=== PATIENT | female | born 1980 | race Caucasian/White ===

== ENCOUNTER 2025-03-09 03:25 | Inpatient (IN) | payer OTHER, SELFPAY ==
[2025-03-08 17:29] VITALS: BP 141/93
[2025-03-08 17:48] LABS: Hematocrit 47.1 % (37.0-47.0); Hemoglobin 16.2 g/dL (12.0-16.0); Mean Corp Hgb Conc. 34.4 g/dL (33.0-37.0); Mean Corpuscular Volume 84.9 fL (81.0-99.0); Nucleated Red Blood Cells % 0 %; Platelet Count 503 10^3/uL (130-400); Red Cell Dist. Width 12.7 % (11.5-14.5)
[2025-03-08 18:01] LABS: HCG, Serum Qualitative Screen Negative
[2025-03-08 18:14] LABS: ALT (SGPT) 23 U/L (0-35); AST (SGOT) 24 U/L (14-36); Albumin 4.1 g/dl (3.5-5.0); Alkaline Phosphatase 71 U/L (38-126); Blood Urea Nitrogen 23 mg/dl (7-17); Calcium 9.4 mg/dl (8.4-10.2); Carbon Dioxide 24 mmol/L (22-30); Glucose 110 mg/dl (70-99); Lipase 35 U/L (23-300); Total Protein 7.3 g/dl (6.3-8.2); eGFR > 60.00
[2025-03-08 18:22] LABS: Chloride 106 mmol/L (98-107); Potassium 5.0 mmol/L (3.5-5.1); Sodium 136 mmol/L (135-145)
--- NOTE | 2025-03-08 20:16 | ED.GENMED ---
History of Present Illness
<Rula Kaur NP - Last Filed: 03/09/25 00:43>
General
Chief Complaint: Abdominal Pain
Source: patient
Exam Limitations: none
Time Seen by Provider: 03/08/25 20:07
Nursing documentation reviewed up to this point in time: agreed with
History of Present Illness
History of Present Illness:
Patient to ED wtih complaint of abdominal pain, n/v. Symptoms started this AM. Denies fever chills, no diarrhea. Brought to ED by family for eval. No prior history of same.
Past History
<Rula Kaur NP - Last Filed: 03/09/25 00:43>
Past History
ED Past Medical History: HTN
Review of Systems
<Rula Kaur NP - Last Filed: 03/09/25 00:43>
Review of Systems
Allergies reviewed?: Yes
All Other Systems: ROS reviewed and negative except as documented in HPI and ROS
Constitutional: Reports no symptoms
EENT: Reports no symptoms
Respiratory: Reports no symptoms
Cardiac: Reports no symptoms
ABD/GI: Reports abdominal pain, nausea and vomiting
: Reports no symptoms
Musculoskeletal: Reports no symptoms
Skin: Reports no symptoms
Neurological: Reports no symptoms
Psychiatric: Reports no symptoms
Phy Exam
<Rula Kaur [employer] - Last Filed: 03/09/25 00:43>
General Physical Exam
General Presentation: moderate distress
General age: appears stated age
General Skin: warm and dry
General Habitus: normal
General Mental: alert
Cardiovascular Exam
Cardiovascular Exam: regular rate/rhythm
Gastrointestinal Exam
Gastrointestinal Exam: normal bowel sounds, soft, no organomegaly, no pulsatile mass and non distended
Palpation: generalized: Moderate tenderness
Musculoskeletal Exam
Musculoskeletal Exam: full ROM and neuro vasc intact
Skin Exam
Skin Exam: normal color, warm/dry and no rash
Psychiatric Exam
Psychiatric Exam: normal mood/affect
Course
<Rula Kaur NP - Last Filed: 03/09/25 00:43>
Orders/Labs/Results
Orders:
Orders
03/08/25 17:34
Test Result ONCE
03/08/25 17:38
Complete Blood Count/With Diff Urgent
Comprehensive Metabolic Panel Urgent
HCG, Serum Qualitative Screen Urgent
Comment: Notify provider if positive test present
Lipase Urgent
03/08/25 20:14
0.9% Sodium Chloride 1000 ml [Nss] 1,000 ml IV BOLUS
HYDROmorphone [Dilaudid] 0.5 mg IV NOW STA
Ondansetron Injectable [Zofran] 4 mg IV NOW STA
03/08/25 20:15
CT Abd/pelvis W Iv Cont Urgent
Comment:
Reason For Exam: diffuse pain, n/v
Urinalysis Reflex To Culture Urgent
03/08/25 20:33
Lactic Acid Urgent
03/08/25 23:23
HYDROmorphone [Dilaudid] 0.5 mg IV NOW STA
03/08/25 23:24
HYDROmorphone [Dilaudid] 0.5 mg .ROUTE .STK-MED ONE
03/08/25 23:32
Ondansetron Injectable [Zofran] 4 mg .ROUTE .STK-MED ONE
03/08/25 23:33
Ondansetron Injectable [Zofran] 4 mg IV NOW STA
03/09/25 00:38
LevoFLOXacin 750 MG/150 ML [Levaquin] 750 mg in 150 ml IV NOW
MetroNIDAZOLE 500 MG/100 ML [Flagyl 500 mg] 100 ml IV NOW
03/09/25 23:50
CR Chest - 2 Views Urgent
Reason For Exam: opacities seen on abd. CT
Abnormal Lab Results
03/08/25
17:38
WBC 17.0 H 10^3/uL
(4.8-10.8)
RBC 5.55 H 10^6/uL
(4.20-5.40)
Hgb 16.2 H g/dL
(12.0-16.0)
Hct 47.1 H %
(37.0-47.0)
Plt Count 503 H 10^3/uL
(130-400)
Abs Immat Gran (auto) 0.2 H 10^3/uL
(0-0.05)
Absolute Neuts (auto) 15.2 H 10^3/uL
(1.4-6.5)
Immature Gran % 0.9 H %
(0-0.5)
Neutrophils % 89.0 H %
(42.2-75.2)
Lymphocytes % 7.7 L %
(20.5-51.1)
BUN 23 H mg/dl
(7-17)
Glucose 110 H mg/dl
(70-99)
03/08/25 17:38
03/08/25 17:38
Vital Signs
Initial and Last Documented VS:
Initial Vital Signs
Temp Pulse Resp BP Pulse Ox
99.1 F 76 16 141/93 100
03/08/25 17:29 03/08/25 17:29 03/08/25 17:29 03/08/25 17:29 03/08/25 17:29
Last Documented Vital Signs
Temp Pulse Resp BP Pulse Ox
98 F 89 20 120/82 98
03/08/25 23:39 03/08/25 23:39 03/08/25 23:39 03/08/25 23:39 03/08/25 23:39
<Josette Dimas MD - Last Filed: 03/09/25 00:43>
Orders/Labs/Results
Orders:
Orders
03/08/25 17:34
Test Result ONCE
03/08/25 17:38
Complete Blood Count/With Diff Urgent
Comprehensive Metabolic Panel Urgent
HCG, Serum Qualitative Screen Urgent
Comment: Notify provider if positive test present
Lipase Urgent
03/08/25 20:14
0.9% Sodium Chloride 1000 ml [Nss] 1,000 ml IV BOLUS
HYDROmorphone [Dilaudid] 0.5 mg IV NOW STA
Ondansetron Injectable [Zofran] 4 mg IV NOW STA
03/08/25 20:15
CT Abd/pelvis W Iv Cont Urgent
Comment:
Reason For Exam: diffuse pain, n/v
Urinalysis Reflex To Culture Urgent
03/08/25 20:33
Lactic Acid Urgent
03/08/25 23:23
HYDROmorphone [Dilaudid] 0.5 mg IV NOW STA
03/08/25 23:24
HYDROmorphone [Dilaudid] 0.5 mg .ROUTE .STK-MED ONE
03/08/25 23:32
Ondansetron Injectable [Zofran] 4 mg .ROUTE .STK-MED ONE
03/08/25 23:33
Ondansetron Injectable [Zofran] 4 mg IV NOW STA
03/09/25 00:38
LevoFLOXacin 750 MG/150 ML [Levaquin] 750 mg in 150 ml IV NOW
MetroNIDAZOLE 500 MG/100 ML [Flagyl 500 mg] 100 ml IV NOW
03/09/25 23:50
CR Chest - 2 Views Urgent
Reason For Exam: opacities seen on abd. CT
Abnormal Lab Results
03/08/25
17:38
WBC 17.0 H 10^3/uL
(4.8-10.8)
RBC 5.55 H 10^6/uL
(4.20-5.40)
Hgb 16.2 H g/dL
(12.0-16.0)
Hct 47.1 H %
(37.0-47.0)
Plt Count 503 H 10^3/uL
(130-400)
Abs Immat Gran (auto) 0.2 H 10^3/uL
(0-0.05)
Absolute Neuts (auto) 15.2 H 10^3/uL
(1.4-6.5)
Immature Gran % 0.9 H %
(0-0.5)
Neutrophils % 89.0 H %
(42.2-75.2)
Lymphocytes % 7.7 L %
(20.5-51.1)
BUN 23 H mg/dl
(7-17)
Glucose 110 H mg/dl
(70-99)
03/08/25 17:38
03/08/25 17:38
Vital Signs
Initial and Last Documented VS:
Initial Vital Signs
Temp Pulse Resp BP Pulse Ox
99.1 F 76 16 141/93 100
03/08/25 17:29 03/08/25 17:29 03/08/25 17:29 03/08/25 17:29 03/08/25 17:29
Last Documented Vital Signs
Temp Pulse Resp BP Pulse Ox
98 F 89 20 120/82 98
03/08/25 23:39 03/08/25 23:39 03/08/25 23:39 03/08/25 23:39 03/08/25 23:39
<Rula Kaur [employer] - Last Filed: 03/09/25 00:43>
*Radiology
Radiology exam reviewed: radiology read reviewed
*Pulse Oximetry
SaO2: 100
Oxygen Mode of Delivery: Room air
Patient hypoxic: no
*Critical Care Note
Total Time (30-74mins, 75-104mins- exclusive of procedures): Not Applicable
<Rula Kaur NP - Last Filed: 03/09/25 00:43>
Update Note
Update Note:
Patient to ED with complaint of diffuse abdominal pain, n/v. Symptoms started this AM. Denies fever/chills. Afebrile in ED. Labs reviewed. WBC 17. Abd CT report reviewed. Moderated thickening/edema within muliple loops of the mid to distal
small bowel. Large amt of ascites. Possible etiologies include infection, inflammation, ischemia, vasculitis Angioedema is also a possiblecause, patient is has been taking Benazepril for the past year. Biilateral lobe opacities noted on CT also.
CXR reviewed, NAD noted. LCTA, pulse ox 99% RA. Discussed case with Dr. Dimas, CT reviewed with her. Will admit to hospitalist. Levaquin/flagyl started in ED.
ED Attending Note
<Rula Kaur NP - Last Filed: 03/09/25 00:43>
-
Portions of this chart may have been created with voice recognition software.� Occasional wrong word or��sound alike� substitutions may have occurred due to the inherent limitations of voice recognition software.
<Josette Dimas MD - Last Filed: 03/09/25 00:43>
ED Attending Note
Patient seen and examined by attending physician: Yes
I performed the substantive portion of visit, reviewed & personally made and approve the management plan that is documented in note by myself or WES.: Yes
ED Attending Note:
44-year-old female notes abdominal pain that developed early this morning, not sudden in onset, but persistent, waxes and wanes in intensity in 'waves' associated with nausea and vomiting but no diarrhea. No fever, chills. Pain is diffuse without
exacerbating relieving factors. On exam, now status post pain medication has minimal tenderness to palpation, no rebound or guarding. Overall well-appearing, requesting something to drink. Labs CT reviewed, differential is broad. She does not
have a 'surgical' exam given absence of rebound or guarding or toxicity. TERRY inhibitor induced angioedema is a possibility and patient was advised to discontinue TERRY inhibitor's going forward or until advised otherwise. She will be admitted,
hydration, pain management, observation, may need repeat imaging.
Discharge Plan
Departure
Patient Disposition: Admit
Date of Disposition: 03/09/25
Time of Disposition: 00:42
Presentation/result/management discussed w/ accepting MD/DO: Hospitalist
Patient with high blood pressure during this ER visit?: No
Condition: Good
Covid-19: Not Applicable
Discharge Problem:
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
Prescriptions:
No Action
benazepril-hydrochlorothiazide 10-12.5 mg Tablet
1 tab PO DAILY
Loestrin 24 Fe 1 mg-20 mcg (24)/75 mg (4) Tablet
1 tab PO DAILY
Referrals:
Denis Weiss MD [Family Provider, Internal Medicine]
Interventions
Interventions:
*Risk Screen - Suicide Last Done: 03/08/25 17:29
*General Assessment Last Done: 03/08/25 20:41
*Neglect/Abuse Screening Last Done: 03/08/25 17:29
*ED- Fall Risk Assessment Last Done: 03/08/25 20:41
*ED COVID-19 Vaccine History Last Done: 03/08/25 20:41
DA-Ebttpv-Crkekxfxwg Assessment Last Done: 03/08/25 23:46
Discharge Date and Time
Print Language: NICARAGUAN
[2025-03-08] MEDS: ZOFRAN 4 MG IV ×2 (20:28→23:34)
[2025-03-08] MEDS: NSS 1000 IV (20:28)
[2025-03-08] MEDS: DILAUDID 0.5 MG IV ×2 (20:29→23:34)
[2025-03-08 20:32] VITALS: BMI 24.8
[2025-03-08 21:48] VITALS: BP 127/82
[2025-03-08 23:39] VITALS: BP 120/82
[2025-03-09] MEDS: FLAGYL 500 MG 100 IV ×3 (01:23→14:30)
[2025-03-09 01:30] VITALS: BP 121/79
--- NOTE | 2025-03-09 02:02 | HPS.HSE ---
Family Physician
-
Family Physician: Denis Weiss MD
Chief Complaint
-
Abdominal pain
History of Present Illness
This is a 44-year-old female with past medical history of hypertension who presents to the emergency department with acute onset of abdominal pain.
Patient reported that she had a meal which frame on Wednesday. The following morning she started having abdominal discomfort. She felt that her abdomen was bloated but not had. She had nausea and 2 episodes of vomiting that was nonbloody and
nonbilious. She reports that she has had minimal gas output and she has not had a bowel movement since. She definitely has not had any diarrhea. She denies any prior history of abdominal symptoms. She denies any other sick contacts. She denies
any recent travel. She reports family history of mother with Crohn's. Patient denied having any fevers or chills. She has had no intra-abdominal surgeries in the past.
Patient reported that about 1 week ago she had a fever x 1 day and a cough that was productive that lingered for several days. She says she has not had any fevers recently and the cough is completely resolved.
On arrival in the emergency department she was afebrile with temp of 98, blood pressure was 120/80 with a pulse of 87 and she was satting 99% on room air. White count was 17,000 with hemoglobin of 16 and platelet of 503 electrolytes were all normal
BUN/creatinine were normal. LFTs were normal.
CT of the abdomen pelvis showing:
Moderate wall thickening/edema within loops of mid to distal small bowel, moderate to large amount of ascites, findings are nonspecific and could be related to enteritis. The possibility of angioedema of the small bowel is unlikely given the
patient is not taking TERRY inhibitor.
Areas of consolidation of the lung bases including the right middle lobe, lingula and left lower lobe consistent with multifocal pneumonia.
Medical History
Past Medical History
Past Medical History: Reports HTN
Past Surgical History: Reports Orthopedic (Discectomy)
Social History
Tobacco: Non-smoker
Alcohol: Occasional
Drug: None
Personal:
Living: With Family
Employment: Employed
Family History
Family History: Other (Mother with Crohn's disease)
Allergies / Home Medications
Allergies reflects when Allergies were last updated in [employer].
Home Medications with original date entered in [employer]
Allergy/Medication List:
Allergies
Allergy/AdvReac Type Severity Reaction Status Date / Time
Penicillins Allergy Hives Verified 03/08/25 17:33
Home Medications
benazepril 10 mg-hydrochlorothiazide 12.5 mg tablet 1 tab PO DAILY 03/08/25
norethindrone 1 mg-ethinyl estradiol 20 mcg (24)-iron 75 mg (4) tablet 1 tab PO DAILY 03/08/25
Review of Systems
-
Constitutional: Reports No Symptoms
EENT: Reports No Symptoms
Respiratory: Reports No Symptoms
Cardiac: Reports No Symptoms
Abdomen/GI: Reports See HPI and Abdominal Pain
: Reports No Symptoms
Musculoskeletal: Reports No Symptoms
Skin: Reports No Symptoms
Neurological: Reports No Symptoms
Endocrine: Reports No Symptoms
Hematologic/Lymphatic: Reports No Symptoms
Psych: Reports No Symptoms
Physical Exam
Vital Signs
Vital Signs
Temp Pulse Resp BP Pulse Ox
98 F 87 20 121/79 99
03/08/25 23:39 03/09/25 01:30 03/09/25 01:30 03/09/25 01:30 03/09/25 01:30
Physical Exam
General: Well Developed, Well Nourished and No Apparent Distress
HEENT: NormoCephalic, Moist mucous membranes and Atraumatic
Respiratory: Clear
Cardiac: S1/S2 and Regular Rhythm; No Murmur or Rub
GI: Soft, Non Tender, Non Distended and Normal Bowel Sounds; No Organomegaly
Rectal: Deferred by Provider
Musculoskeletal: No Clubbing, No Cyanosis and No Edema
Skin: No Rash
Neuro: AO x 3 and Nonfocal/grossly intact
Laboratory Results
-
03/08/25 17:38
03/08/25 17:38
Laboratory Results
Lactic Acid Cancelled 03/08/25 23:30
Total Bilirubin 0.7 mg/dl (0.2-1.3) 03/08/25 17:38
AST 24 U/L (14-36) 03/08/25 17:38
ALT 23 U/L (0-35) 03/08/25 17:38
Alkaline Phosphatase 71 U/L (38-126) 03/08/25 17:38
Lipase 35 U/L (23-300) 03/08/25 17:38
Data Reviewed
-
Diagnostic Radiology: Image Personally Visualized and interpreted
CT Scan: Report Reviewed by me
Lab Data: Labs Reviewed by me
Old Records: Reviewed
Impression/Plan
-
IMPRESSION:
44-year-old female with past medical history of hypertension who presents to the emergency department with abdominal pain x 1 day. Associated vomiting but no diarrhea. She has a leukocytosis of 17 but otherwise labs are unremarkable. CT scan
shows findings consistent with inflammation of the small bowel with some thickened small bowel loops but no obstruction. No colitis noted.
PLAN:
Abdominal pain -abdominal pain with nausea and vomiting but no fevers chills and there is some leukocytosis. CT scan consistent with enteritis. There is some concern for angioedema of the intestine 9 due to TERYR inhibitor. Was given acute onset
ascites degree of inflammation is also stated to be high. No personal history of Crohn's but family history of Crohn's.
- Admit to MedSurg
-N.p.o. for now except oral medications sips and ice chips
-Pain control and antiemetics
-Will continue IV levofloxacin and Flagyl for now
-Given concern for angioedema, hold benazepril
-Check fecal calprotectin, ESR
-GI consultation
Multifocal infiltrates on CT - Likely sequela of recent infection. No current respiratory symptoms
- on abx as above for GI
- monitor respiratory status
- check legionella urinary ag
DVT prophylaxis -Lovenox subcu
CODE STATUS�full code
[2025-03-09] MEDS: DILAUDID 0.5 MG IV (02:51)
[2025-03-09] MEDS: LEVAQUIN 150 IV (02:57)
[2025-03-09] MEDS: REGLAN 10 MG IV (03:30)
[2025-03-09 03:47] VITALS: BP 123/73
[2025-03-09 03:50] VITALS: BMI 24.6
[2025-03-09] MEDS: LR 1000 IV (04:55)
[2025-03-09 07:40] LABS: Hematocrit 38.7 % (37.0-47.0); Hemoglobin 13.0 g/dL (12.0-16.0); Mean Corp Hgb Conc. 33.6 g/dL (33.0-37.0); Mean Corpuscular Volume 86.6 fL (81.0-99.0); Platelet Count 442 10^3/uL (130-400); Red Cell Dist. Width 13.0 % (11.5-14.5)
[2025-03-09 07:53] VITALS: BP 101/62
[2025-03-09 08:07] LABS: Blood Urea Nitrogen 20 mg/dl (7-17); Calcium 7.8 mg/dl (8.4-10.2); Carbon Dioxide 23 mmol/L (22-30); Chloride 108 mmol/L (98-107); Estimated Creatinine Clearance 87 ml/min; Glucose 118 mg/dl (70-99); Magnesium 2.0 mg/dl (1.6-2.3); Potassium 4.7 mmol/L (3.5-5.1); Sodium 136 mmol/L (135-145); eGFR > 60.00
--- NOTE | 2025-03-09 08:25 | CON.GI ---
Addendum entered and electronically signed by Lory Eckert Do, MD 03/09/25 15:42:
I saw and examined the patient.
The [employer]YWALL HANGER FRAMER's note was reviewed and I agree with the note.
Comment: This is a 44yo W with h/o HTN who was admitted for fever and abd pain. Denies diarrhea. Vitals reviewed exam NTTP, NABS. white teeth good dentition. Labs reviewed mild leukocytosis improving. CT with severe SB enteritis moderate
reactive pelvic ascites. Multifocal PNA
Impression
- Fever
- Multifocal PNA
- Abd pain CT with SB enteritis
- Pelvic ascites
Recommendation
- She is tolerating low residue diet
- Abd pain resolved
- At this juncture await stool studies but she has no diarrhea
Ok from GI perspective for hosp d/c to complete course of abx for PNA and suspected infectious enteritis
She will follow up with her mother's GI Dr Tavares
GI will sign off please call for ?
Addendum entered and electronically signed by ANGELIQUE Carrillo 03/09/25 09:14:
will add stool studies and fecal celso protectin added on admission, legionalla, strep PNA pending
Original Note:
Consultation
-
Date/Time Consultation Requested: 03/09/25 0340
Date/Time Consultation Performed: 03/09/25 0830
Requesting Provider: Adeola Juares MD
Performing Provider: ANGELIQUE Pruitt, Lory Morales MD
Reason for Consultation: abdominal pain
Medical History
Chief Complaint / HPI
Chief Complaint: abdominal pain
History of Present Illness:
Pt is a 44yo with hx family hx crohns in mother, HTN (on Benazapril/HCTZ x 1 years no dose change), discectomy with onset of abdominal pain. In review with patient she was noted with fever and upper resp symptoms last week. She did not some left
posterior chest discomfort. She then ate grilled shrimp lunch on 03/07 with onset of severe pain on 03/08. Symptoms progressed with small amount of emesis and presents to ER. Pain was diffuse with onset then lower abdomen with progession of
symptoms. On admission noted with WBC 17,000, with otherwise stable labs. Preliminary CT with concern for moderate thickening/edema within multiple loops of mid to distal small bowel with moderate to large amount of ascites possible severe
enteritis (infectious, inflammatory, less likely ischemic, vasculitis, angioedema with TERRY use). Also noted concern for multifocal PNA and asked to see.
In review with patient, mother with family hx crohns disease. She completed EGD/colonoscopy with Dr. Gomez about 9 years ago with normal results. She denies any recent travel, abx, cold medications, supplement and admits to very healthy
lifestlye with exercise and diet. She denies chronic GI issues and no wt loss, dysphagia, GERD, bloating, diarrhea, constipation, or rectal bleeding.
Past Medical History
Past Medical History: HTN
Past Surgical History: Orthopedic (discetomy)
Social History
Tobacco: Non-Smoker
Alcohol: Occasional (on weekends )
Drug: None
Living: With Family (mother )
Employment: Employed
Family History
Family History: Other (mother with crohns no other family hx GI issues )
Allergies / Home Medications
Allergy/AdvReac Type Severity Reaction Status Date / Time
Penicillins Allergy Hives Verified 03/08/25 17:33
�Medication �Instructions �Recorded
benazepril 10 1 tab PO DAILY 03/08/25
mg-hydrochlorothiazide 12.5 mg
tablet
norethindrone 1 mg-ethinyl 1 tab PO DAILY 03/08/25
estradiol 20 mcg (24)-iron 75 mg
(4) tablet
Review of Systems
-
History Source: Patient
Constitutional: Reports Fever (last week )
EENT: Reports No Symptoms
Respiratory: Reports Other (some upper resp symptoms last week with fever )
Cardiac: Reports No Symptoms
Abdomen/GI: Reports Abdominal Pain, Nausea and Vomiting
: Reports No Symptoms
Musculoskeletal: Reports No Symptoms
Skin: Reports No Symptoms
Neurological: Reports No Symptoms
Endocrine: Reports No Symptoms
Hematologic/Lymphatic: Reports No Symptoms
Vital Signs
Temp Pulse Resp BP Pulse Ox
98.5 F 77 18 101/62 98
03/09/25 07:53 03/09/25 07:53 03/09/25 07:53 03/09/25 07:53 03/09/25 07:53
Physical Exam
Exam
General: Well Developed, Well Nourished and No Apparent Distress
HEENT: Normocephalic and Anicteric
Respiratory: Clear
Cardiac: Regular Rhythm
GI: Soft, Non Distended and Tender (minimal lower abdominal pain )
Musculoskeletal: No Clubbing and No Cyanosis
Skin: Warm and Dry
Neuro: Awake, Alert and AO x 3
Psych: Calm
Results
WBC 16.1 10^3/uL (4.8-10.8) H 03/09/25 06:53
Hgb 13.0 g/dL (12.0-16.0) 03/09/25 06:53
Hct 38.7 % (37.0-47.0) 03/09/25 06:53
MCV 86.6 fL (81.0-99.0) 03/09/25 06:53
Plt Count 442 10^3/uL (130-400) H 03/09/25 06:53
Absolute Neuts (auto) 15.2 10^3/uL (1.4-6.5) H 03/08/25 17:38
Sodium 136 mmol/L (135-145) 03/09/25 06:53
Potassium 4.7 mmol/L (3.5-5.1) 03/09/25 06:53
Chloride 108 mmol/L (98-107) H 03/09/25 06:53
Carbon Dioxide 23 mmol/L (22-30) 03/09/25 06:53
BUN 20 mg/dl (7-17) H 03/09/25 06:53
Creatinine 0.7 mg/dL (0.6-1.0) 03/09/25 06:53
Calcium 7.8 mg/dl (8.4-10.2) L D 03/09/25 06:53
Total Bilirubin 0.7 mg/dl (0.2-1.3) 03/08/25 17:38
AST 24 U/L (14-36) 03/08/25 17:38
ALT 23 U/L (0-35) 03/08/25 17:38
Alkaline Phosphatase 71 U/L (38-126) 03/08/25 17:38
Lipase 35 U/L (23-300) 03/08/25 17:38
Diagnostic Image Results:
03/09/25 CXR
1. Patchy bibasilar opacities, also seen on concurrent CT abdomen and pelvis, consistent with pneumonia, aspiration, or subsegmental atelectasis.
2. No significant pleural effusion on either side.
03/09/[address] a/p with concern for moderate thickening/edema within multiple loops of mid to distal small bowel with moderate to large amount of ascites possible severe enteritis (infectious, inflammatory, less likely ischemic, vasculitis,
angioedema with TERRY use). Also noted concern for multifocal PNA.
Prior GI Procedures:
EGD: [address] Patricia peñaloza
Colonoscopy: [address] Patricia peñaloza
Assessment / Plan
-
Pt is a 44yo with hx family hx crohns in mother, HTN (on Benazapril/HCTZ x 1 years no dose change), discectomy with onset of abdominal pain. In review with patient she was noted with fever and upper resp symptoms last week. She did not some left
posterior chest discomfort. She then ate grilled shrimp lunch on 03/07 with onset of severe pain on 03/08. Symptoms progressed with small amount of emesis and presents to ER. Pain was diffuse with onset then lower abdomen with progression of
symptoms. On admission noted with WBC 17,000, with otherwise stable labs. Preliminary CT with concern for moderate thickening/edema within multiple loops of mid to distal small bowel with moderate to large amount of ascites possible severe
enteritis (infectious, inflammatory, less likely ischemic, vasculitis, angioedema with TERRY use). Also noted concern for multifocal PNA and asked to see.
-sudden onset of abdominal pain with concern for severe enteritis with moderate to large amount of ascites
-imaging concern for multifocal PNA
-fever/UTI symptoms 1 week prior to admission
-leukocytosis
-family hx crohn disease
other med problems:
-HTN on Benazapril/HCTZ x 1 years no dose change
discectomy
PLAN:
etiology of symptoms with concern for severe enteritis with also multifocal PNA
etiology enteritis infectious with recent shrimp ingestion, inflammatory- family hx crohns but no chronic symptosm, less likely ischemic, vasculitis, angioedema with TERRY use vs other
pt feeling better today
await final read of CT
will trial clear diet- and advance as tolerated to low residue
cont abx
medical team to review with patient possible angioedema with TERRY use but has been on for 1 year without dose change
trend symptoms t/c MRE/CTE/Sb imaging 4-6 week if not improving sooner if not tolerating diet
OP follow up with known GI - Dr. Gomez's group where pt was seen in past
cont abx/rx for PNA per medical team
-
-
Thank you for consultation and allowing me to participate in the patient's care. Please call the staff electronic warfare officer GI physician during the after hours with any questions or concerns.
[2025-03-09] MEDS: CALCIUM GLUCONATE 100 IV (10:16)
[2025-03-09] MEDS: ORETIC 12.5 MG PO (10:16)
--- NOTE | 2025-03-09 11:37 | CM ---
Addendum entered by Mirian Pate 03/09/25 16:07:
Patient for d/c today
No CM needs
Original Note:
patient seen at bedside. Initial assessment completed. Patient resides with her mother. Lives in multi-zack home. Three steps to enter the home. Bathroom on 1st and 2nd floors. Independent with ADL, no DME. No history of SNF needs. PCP -
Ramon Weiss, Pharmacy_ [facility] in [place]. Confirmed patient does not have insurance at this time; recently unemployed. Soon to begin new job.
Plan: Home , no needs likely.
[2025-03-09 15:17] VITALS: BP 116/75
--- NOTE | 2025-03-09 15:48 | W.PN.HOSP.TC ---
Today's Communication/Plan
-
dc to home if tolerates LRD for dinner
Assessment / Plan
Assessment / Plan
Assessment:
Abdominal pain
- CT with findings suggestive of enteritis and reactive ascites. Unlikely to be angioedema from TERRY given stable dose x 1 year.
- continue Leva/Flagyl, day 08/27
- Diet: LRD - if tolerated, can dc home
- OP f/u with Dr. Gomez - GI
Multifocal pneumonia, community acquired
- not hypoxia, comfortable
- continue Levaquin x day 08/27
Hypocalcemia - repleted
Essential HTN
- continue TERRY/HCTZ - which was prescribed 1 year ago without change
DVT ppx: SC Lovenox
Code: Full
More than 30 minutes spent in discharge including
Final examination of the patient
Summarizing hospital stay
Instructions for continuing care to all relevant caregivers
Preparation of discharge records, prescriptions, and referral forms
Total time spent (in minutes): 41
Anticipated Discharge: Today
Subjective/Interval History
-
Date of Service: March 09, 2025
reports tolerating clears
no abd pain, n/v or diarrhea
Objective Data
-
Labs:
Laboratory Results
03/09/25
06:53
WBC 16.1 H
Hgb 13.0
Hct 38.7
Plt Count 442 H
Sodium 136
Potassium 4.7
Chloride 108 H
Carbon Dioxide 23
BUN 20 H
Creatinine 0.7
Glucose 118 H
Calcium 7.8 L D
Vital Signs:
Vital Signs
Temp Pulse Resp BP Pulse Ox
98.5 F 76 18 116/75 100
03/09/25 15:17 03/09/25 15:17 03/09/25 15:17 03/09/25 15:17 03/09/25 15:17
Physical Exam
-
General: No Apparent Distress
HEENT: Normocephalic and Atraumatic
Respiratory: Negative Wheezes
Cardiac: Regular Rhythm and S1/S2
GI: Soft
Neuro: AO x 3
Psych: Calm
Data Reviewed
-
Total Time Spent with Patient (in minutes): 41
Labs: Labs Reviewed by me
--- NOTE | 2025-03-09 16:02 | W.DS.TRANS ---
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
-
Discharge Instructions:
Discharge Diagnosis/Procedures enteritis, pneumonia
Diet Regular
Activity No restrictions
Instructions:
Stand-Alone Forms:
Changes to Home Medications: No
Discharge Medications:
DC Medications w/original date entered in [facility]
benazepril 10 mg-hydrochlorothiazide 12.5 mg tablet 1 tab PO DAILY 03/08/25
norethindrone 1 mg-ethinyl estradiol 20 mcg (24)-iron 75 mg (4) tablet 1 tab PO DAILY 03/08/25
levofloxacin 750 mg tablet 750 mg PO DAILY #4 tabs 03/09/25
metronidazole 500 mg tablet 500 mg PO Q8H #12 tabs 03/09/25
Home Medication Changes
Pending Results: No
Total time spent discharging patient (in min): 41
--- NOTE | 2025-03-09 16:03 | W.DS.TRANS ---
DC Summary - [employer]
-
Discharge Instructions:
Discharge Diagnosis/Procedures enteritis, pneumonia
Diet Regular
Activity No restrictions
Instructions:
Stand-Alone Forms:
Changes to Home Medications: No
Discharge Medications:
DC Medications w/original date entered in [facility]
benazepril 10 mg-hydrochlorothiazide 12.5 mg tablet 1 tab PO DAILY 03/08/25
norethindrone 1 mg-ethinyl estradiol 20 mcg (24)-iron 75 mg (4) tablet 1 tab PO DAILY 03/08/25
levofloxacin 750 mg tablet 750 mg PO DAILY #4 tabs 03/09/25
metronidazole 500 mg tablet 500 mg PO Q8H #12 tabs 03/09/25
Home Medication Changes
Pending Results: No
Total time spent discharging patient (in min): 41
--- NOTE | 2025-03-09 16:06 | W.DCSUMMARY ---
Discharge Summary
Discharge Data
Date of Admission: 03/09/25
Date of Discharge: 03/09/25
-
Pending Results: No
Hospital Course
44 y/o F, hx of HTN who presented to ER with abdominal pain and fever. CT scan in the ER showed enteritis with reactive ascites. Bowel wall angioedema was in the differential diagnosis but felt unlikely given patients TERRY inhibitor dose was
unchanged for 1 year. Her imaging also revealed multifocal pneumonia. She was started on IV fluids, Levaquin and Flagyl. She improved the next day and was advanced on her diet which she tolerated well. She was discharged home on 03/09. She will
follow up with her outpatient [facility] in [place].
Discharge Plan
-
Patient Disposition: Home (Routine Discharge)
Discharge Diagnosis/Procedures: enteritis, pneumonia
Condition: Fair
Diet: Regular
Activity: No restrictions
Referrals:
Denis Weiss MD [Family Provider, Internal Medicine]
Isaiah Gomez DO [Non-Admitting Privileges, Internal Medicine]
Prescriptions:
New
levofloxacin 750 mg tablet
750 mg PO DAILY Qty: 4 0RF
metronidazole 500 mg tablet
500 mg PO Q8H Qty: 12 0RF
Continued
norethindrone-e.estradiol-iron 1 mg-20 mcg (24)/75 mg (4) Tablet
1 tab PO DAILY
No Action
benazepril-hydrochlorothiazide 10-12.5 mg Tablet
1 tab PO DAILY
Discharge Orders:
Discharge Patient (As Directed); Ordered 03/09/25
Ordered By: Adali Meyer
Discharge Date and Time
Print Language: MOZAMBICAN
== END 2025-03-09 17:01 | disposition home or self-care (01) | DRG 391 ==
LOC: 4 WEST ACU 03:25
PROVIDERS: Emergency Medicine; Nurse Practitioner; ADMITTING PHYSICIAN Internal Medicine; ATTENDING PHYSICIAN Internal Medicine; CONSULT PHYSICIAN Internal Medicine Gastroenterology; EMERGENCY PHYSICIAN Emergency Medicine; FAMILY PHYSICIAN Student in an Organized Health Care Education/Training Program
DX: K52.9 Noninfective gastroenteritis and colitis, unspecified (principal); J18.9 Pneumonia, unspecified organism; R18.8 Other ascites; I10 Essential (primary) hypertension; E83.51 Hypocalcemia; Z83.79 Family history of other diseases of the digestive system; Z88.0 Allergy status to penicillin
CPT/HCPCS: 71046; 74177; 80048; 80053; 83605; 83690; 83735; 84703; 85025; 85027; 85652; 93005; 96361; 96365; 96367; 96375; 96376; 99285; Q9967